=== PATIENT | female | born 1950 | race Caucasian/White ===

== ENCOUNTER 2022-01-29 23:30 | Emergency (ER) | payer OTHER ==
[~2022-01-29] VITALS: Ht 154.9 cm; Wt 63.0 kg
[~2022-01-29 23:30] MED LIST: AMLO-258 PO; ASPI-1012 PO; FLUO10TA3 PO; HYDR-4457 PO
[2022-01-30] MEDS ORDERED: SOLU-MEDROL 125MG VIAL IVP ONE
[2022-01-30] MEDS ORDERED: ACET-2079 PO (01:44)
[2022-01-30 01:52] VITALS: BP 150/84
[2022-01-30] MEDS ORDERED: MORPHINE 2 MG SYG IVP ONE (02:00)
[2022-01-30] MEDS ORDERED: PROCHLORPERAZINE 10MG/2ML INJ IV ONE (02:00)
== END 2022-01-30 02:01 | disposition home or self-care (01) ==
LOC: EDH 23:30
DX: S82.832A Other fracture of upper and lower end of left fibula, initial encounter for closed fracture (principal); E78.00 Pure hypercholesterolemia, unspecified; I10 Essential (primary) hypertension; Z88.2 Allergy status to sulfonamides; Z88.6 Allergy status to analgesic agent; Z88.8 Allergy status to other drugs, medicaments and biological substances; Z79.82 Long term (current) use of aspirin; Z79.899 Other long term (current) drug therapy; Z98.890 Other specified postprocedural states; W01.0XXA Fall on same level from slipping, tripping and stumbling without subsequent striking against object, initial encounter; Y93.01 Activity, walking, marching and hiking; Y92.89 Other specified places as the place of occurrence of the external cause; Y99.8 Other external cause status
CPT/HCPCS: 99284; 29505; 73600; 73590; 96374; 96375; J2930; J0780

== ENCOUNTER → 2023-08-31 | Outpatient (CLI) | payer OTHER ==
[~2023-08-31] MED LIST changes: +ACET-2079 PO; -FLUO10TA3 PO; +FLUO10TA35 PO
== END | disposition home or self-care (01) ==
LOC: RAH 09:17
PROVIDERS: ATTEND Internal Medicine
DX: Z12.31 Encounter for screening mammogram for malignant neoplasm of breast (principal)
CPT/HCPCS: 77067

== ENCOUNTER → 2024-02-13 | Outpatient (CLI) | payer OTHER ==
--- NOTE | 2024-02-13 18:13 | HMCIMG ---
US THYROID/NECK HISTORY: Thyroid nodule COMPARISON: None TECHNIQUE: Thyroid ultrasound study was performed. FINDINGS: Right thyroid lobe measures 3.9 x 1.2 x 1.1 cm. Left thyroid lobe measures 3.4 x 0.7 x 1.1 cm. There are right thyroid nodules in the upper pole measuring 3 mm and in the midpole measuring 4 mm. IMPRESSION: 1. Subcentimeter right thyroid nodules.
== END | disposition home or self-care (01) ==
LOC: RAH 13:23
PROVIDERS: ATTEND Internal Medicine
DX: E04.2 Nontoxic multinodular goiter (principal)
CPT/HCPCS: 76536